=== PATIENT | female | born 2000 | race Native Hawaiian/Other Pacific Islander ===

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

== ENCOUNTER → 2019-06-25 | Outpatient (CLI) | payer BC, MEDICAID ==
[~2019-06-25] MED LIST changes: +AMOXICILLIN 50500 MG PO; +DESMOPRESSIN A0.1 MG PO; +DESMOPRESSIN A0.2 MG PO; +ESTRADIOL1 EAC4 TD; +GLUCOPHAGE PO; +HYDROCORTISONE5 M2 PO; +LEVOTHYROXINE100 MC1 PO; +NORCO 325 MG-51 TA1 PO; +OMNITROPE5 MG/1.5 M SC
== END ==
LOC: RAD 12:04
DX: M25.562 Pain in left knee (principal)

== ENCOUNTER → 2019-08-05 | Outpatient (CLI) | payer BC, MEDICAID | LOC: LAB 11:12 | DX: J02.9 Acute pharyngitis, unspecified (principal) ==

== ENCOUNTER 2021-02-04 09:24 | Emergency (ER) | payer BC, MEDICAID ==
[2021-02-04] MEDS ORDERED: ESTRACE 1MG1 MG/TAB PO (09:43)
[2021-02-04] MEDS ORDERED: DESMOPRESSIN0.2 MG PO (09:46)
[2021-02-04] MEDS ORDERED: LEVETIRACETAM500 M2 PO (09:47)
[2021-02-04] MEDS ORDERED: ZONISAMIDE100 MG PO (09:47)
[2021-02-04] MEDS ORDERED: FAMOTIDINE20 MG PO (10:52)
[2021-02-04 11:01] VITALS: BP 132/76
== END 2021-02-04 11:00 | disposition home or self-care (01) ==
LOC: ED 09:24
DX: J02.9 Acute pharyngitis, unspecified (principal); K21.9 Gastro-esophageal reflux disease without esophagitis; G40.909 Epilepsy, unspecified, not intractable, without status epilepticus

== ENCOUNTER 2021-09-09 09:48 | Emergency (ER) | payer BC, MEDICAID ==
[~2021-09-09 09:48] MED LIST changes: +DESMOPRESSIN0.2 MG PO; +ESTRACE 1MG1 MG/TAB PO; +FAMOTIDINE20 MG PO; +LEVETIRACETAM500 M2 PO; +ZONISAMIDE100 MG PO
[2021-09-09] MEDS ORDERED: AMOXIL500 M1 PO (13:10)
[2021-09-09 13:28] VITALS: BP 97/72
== END 2021-09-09 13:32 | disposition home or self-care (01) ==
LOC: ED 09:48
DX: H92.03 Otalgia, bilateral (principal); Z20.822 Contact with and (suspected) exposure to COVID-19

== ENCOUNTER 2022-04-08 02:50 | Emergency (ER) | payer MEDICAID ==
[~2022-04-08] VITALS: Ht 154.9 cm; Wt 89.0 kg
[~2022-04-08 02:50] MED LIST changes: +AMOXIL500 M1 PO
[2022-04-08 02:55] VITALS: BP 111/72
[2022-04-08] MEDS ORDERED: DESMOPRESSIN A0.1 MG PO (03:09)
[2022-04-08 05:11] LABS: STREP SCREEN NEGATIVE (NEGATIVE)
== END 2022-04-08 05:43 | disposition home or self-care (01) ==
LOC: ED 02:50
PROVIDERS: Family Medicine
DX: R05.1 Acute cough (principal); R09.81 Nasal congestion; R51.9 Headache, unspecified; Z20.822 Contact with and (suspected) exposure to COVID-19

== ENCOUNTER → 2022-10-22 | Outpatient (CLI) | payer MEDICAID ==
[~2022-10-22] MED LIST changes: +AMOXICILLI400 MG/53 PO
[2022-10-22 12:56] LABS: ALBUMIN 3.8 g/dL (3.5-5.0); POTASSIUM 3.7 mmol/L (3.5-5.1)
[2022-10-22 12:57] LABS: CALCIUM 9.5 mg/dL (8.3-10.5)
[2022-10-22 12:59] LABS: TOTAL PROTEIN 7.8 g/dL (6.4-8.3)
[2022-10-22 13:00] LABS: TOTAL BILIRUBIN 0.9 mg/dL (0.2-1.2)
[2022-10-22 13:30] LABS: BASO # 0.03 K/mm3 (0.02-0.10); EOS # 0.22 K/mm3 (0.04-0.40); EOS % 1.9 % (1.0-5.0); HEMATOCRIT 39.4 % (37.0-47.0); HEMOGLOBIN 12.6 g/dL (12.5-16.0); MEAN CELL VOLUME 93 fl (78-100); MEAN CORPUSCULAR HEMOGLOBIN 30 pg (27-31); MEAN CORPUSCULAR HGB CONC 32 g/dL (33-37); MEAN PLATELET VOLUME 10.8 fl (7.4-10.4); MONO # 1.19 K/mm3 (0.20-0.80); NEU # 8.61 K/mm3 (1.40-6.50); PLATELET COUNT 260 K/mm3 (130-400); RED BLOOD COUNT 4.25 M/mm3 (4.10-5.30); RED CELL DISTRIBUTION WIDTH 13.7 % (11.5-14.5); WHITE BLOOD COUNT 11.9 K/mm3 (4.8-10.8)
== END ==
LOC: LAB 12:35
PROVIDERS: Nurse Practitioner
DX: J36 Peritonsillar abscess (principal)

== ENCOUNTER → 2023-05-26 | Outpatient (CLI) | payer OTHER, MEDICAID | LOC: LAB 10:20 | DX: N39.0 Urinary tract infection, site not specified (principal) ==

== ENCOUNTER 2023-06-29 01:13 | Emergency (ER) | payer OTHER, MEDICAID ==
[~2023-06-29] VITALS: Ht 165.1 cm; Wt 81.8 kg
[2023-06-29] MEDS ORDERED: ATROVENT NASAL15 ML NS (02:15)
[2023-06-29] MEDS ORDERED: BENZONATATE200 MG PO (02:15)
[2023-06-29 02:26] VITALS: BP 113/82
== END 2023-06-29 02:25 | disposition home or self-care (01) ==
LOC: ED 01:13
DX: J06.9 Acute upper respiratory infection, unspecified (principal); Z28.311 Partially vaccinated for COVID-19
CPT/HCPCS: J1885